=== PATIENT | female | born 1975 | race Caucasian/White ===

== ENCOUNTER 2024-12-15 14:05 | Emergency (ER) | payer OTHER ==
[~2024-12-15] VITALS: Ht 160 cm; Wt 76.7 kg
[2024-12-15 14:12] VITALS: BP 140/76; PULSE 81; RESP 18; TEMP 97.3; O2SAT 91
--- NOTE | 2024-12-15 15:37 | RADIOLOGY REPORT ---
EXAM: DI TOE(S) INDICATION: TOE PAIN TECHNIQUE: 3 views of the left toes COMPARISON: None FINDINGS/IMPRESSION: Transversely oriented, impacted proximal 4th proximal phalangeal base fracture . Lateral angulation of the distal fracture fragment
[2024-12-15] MEDS: LIDOcaine 1% 30ml preserv. free vial IJ ONE (15:56)
--- NOTE | 2024-12-15 16:25 | RADIOLOGY REPORT ---
EXAM: DI TOE(S) INDICATION: left toe fx f/u after reduction TECHNIQUE: 3 views of the left toes COMPARISON: DI TOE(S) on DOS: 12/15/24 FINDINGS/IMPRESSION: Successful closed reduction of the transversely oriented of the proximal 4th phalanx. Improved alignment
--- NOTE | 2024-12-15 16:53 | Physician Documentation ---
History of Present Illness ~ Chief Complaint: Toe pain Stated Complaint: TOE PAIN Time Seen by MD: 15:10 OK to notify your PCP?: Yes Source: patient Mode of Arrival: POV Exam Limitations: no limitations HPI 49-year-old female with chief complaint left 4th toe pain that occurred when she was walking in [place] and states that she stepped wrong and when she got out of the [place] she noticed that her toe was not pointing the right direction and she was having a lot of pain. She came straight here. She states this occurred about 2 hours ago. Tetanus witin 5 years: No Medication Reconciliation Allergies: Coded Allergies: aspirin (Verified Allergy, Unknown, 12/15/24) Past Medical History Smoking Status: Never smoker Review of Systems All Other Systems at this time: Reviewed and Negative Physical Exam Vital Signs: Temperature: 97.3, Source: Temporal, Heart Rate: 81, Respiratory Rate: 18, BP: 140/76, Pulse Oximetry: 91, Weight: 76.700 Oxygen Flow Rate: 0 Physical Exam General Appearance: Alert, WD/WN. NAD. HEENT: NCAT, PERRL, EOMI. Neck: Supple, trachea midline. Cardiovascular: RRR. No m/r/g. Lungs: CTAB. Breathing unlabored Extremities left 4th toe is angulated clearly displaced, edematous, no erythema, skin intact, tenderness to palpation. Normal inspection of nail plate. No tenderness over the metatarsals. Rest of the toes appear normal. Skin: Warm/dry, normal color Neurological: Alert and oriented x4, ambulating favoring her right leg Psychiatric: Affect congruent with mood. Procedures Procedures They EXAM: DI TOE(S) INDICATION: TOE PAIN TECHNIQUE: 3 views of the left toes COMPARISON: None FINDINGS/IMPRESSION: Transversely oriented, impacted proximal 4th proximal phalangeal base fracture . Lateral angulation of the distal fracture fragment : DI TOE(S) INDICATION: left toe fx f/u after reduction TECHNIQUE: 3 views of the left toes COMPARISON: DI TOE(S) on DOS: 12/15/24 FINDINGS/IMPRESSION: Successful closed reduction of the transversely oriented of the proximal 4th phalanx. Improved alignment : DI TOE(S) INDICATION: left toe fx f/u after reduction TECHNIQUE: 3 views of the left toes COMPARISON: DI TOE(S) on DOS: 12/15/24 FINDINGS/IMPRESSION: Successful closed reduction of the transversely oriented of the proximal 4th phalanx. Improved alignment Splinting Location: left 4th toe Pre-Made Type: walking boot Splint: walking boot Pre-Proc Neuro Vasc Exam: normal Post-Proc Neuro Vasc Exam: normal Splint Placed By: enterprise solutions architect Tolerated Procedure Well?: yes, no complications Joint Reduction : Joint Reduction Site: Left toe Reduction By: myself Conscious Sedation: No Medications/Dose: Lidocaine without epi Reduction Attempts: 1 Pre-Procedure NV Exam: within normal limits Post-Procedure NV Exam: within normal limits Post Reduction Film: joint reduced Tolerated Procedure Well?: yes, no complications Procedure Note Digit block was performed with lidocaine without epi I then used traction and was able to reduce the fracture to very good alignment see postreduction film. We then splinted her by heidy taping the toes putting her in a walking boot Progress Results/Orders Results/Orders Orders - KASEY SAINI Toe(S) (12/15/24 15:59) General Nursing Order (12/15/24 15:59) Completed Orders - KASEY SAINI Lidocaine 1% 30ml Vial (Xylocaine 1% Via (12/15/24 15:20) Toe(S) (12/15/24 15:59) Vital Signs 12/15/24 14:12 Temp 97.3 Pulse 81 Resp 18 B/P (MAP) 140/76 Pulse Ox 91 O2 Flow Rate 0 Medical Decision Making Additional information obtaine: N/A Findings n/a General Diff Dx:Considerations: Unlikely: Other (Should I changed) Knee Diff Dx:Considerations: Unlikely: Other Ankle Diff Dx:Considerations: Unlikely: Other Foot Diff Dx:Considerations: Unlikely: Other Toe Diff Dx:Considerations: Include: Abrasion, Cellulitis, Contusion, Dislocation, Felon, Fracture, Hematoma, Laceration, Neurovascular injury, Open fracture, Paronychia, Subungual hematoma, Other Departure Time of Disposition: 16:53 Disposition: 01 HOME / SELF CARE / HOMELESS Impression: Primary Impression: Fracture, toe Qualified Codes: S92.512A - Displaced fracture of proximal phalanx of left lesser toe(s), initial encounter for closed fracture Condition: Stable Discharge Instructions: Toe Fracture, [id number] Additional Instructions: HERE IS COPY OF XRAY BELOW POST REDUCTION KEEP TOES HEIDY TAPED F/U WITH PRIMARY CARE PROVIDER FOR F/U IMAGING AND REFERRAL TO ORTHO EXAM: DI TOE(S) INDICATION: left toe fx f/u after reduction TECHNIQUE: 3 views of the left toes COMPARISON: DI TOE(S) on DOS: 12/15/24 FINDINGS/IMPRESSION: Successful closed reduction of the transversely oriented of the proximal 4th phalanx. Improved alignment Referrals: NO PRIMARY CARE PROVIDER (PCP) Education Educated: Patient Educated regarding: diagnosis, treatment, need for follow up Signature Scribe Signature: x Attestation: KASEY Lam Dec 15, 2024 16:53
== END 2024-12-15 17:24 | disposition home or self-care (01) ==
LOC: ER 14:07
DX: S92.512A Displaced fracture of proximal phalanx of left lesser toe(s), initial encounter for closed fracture (principal); Z88.6 Allergy status to analgesic agent; X58.XXXA Exposure to other specified factors, initial encounter; Y93.01 Activity, walking, marching and hiking; Y92.89 Other specified places as the place of occurrence of the external cause; Y99.9 Unspecified external cause status
CPT/HCPCS: 28515; 73660; 99284; L4360